=== PATIENT | male | born 2005 | race Two or more races ===

== ENCOUNTER 2025-01-07 09:19 | Emergency (ER) | payer MEDICAID, SELFPAY ==
[2025-01-07 09:33] VITALS: BP 127/79; PULSE 56; RESP 18; TEMP 36.4; O2SAT 99; BMI 21.4
--- NOTE | 2025-01-07 10:00 | EDNOTE_ITS ---
<Statement entered by Mayi Carrillo MD - 01/17/25 19:39> As co-signing physician, I was present and available for consult prn. I concur with the plan and care as documented by the midlevel provider. ED General RME/HPI General Chief complaint: General Adult/Misc Complain Stated complaint: SENT BY [facility] FOR XRAY. PT DOESN'T REMEMBER OF WHAT Time Seen by Provider: 01/07/25 09:38 Source: patient Arrival date/time: 01/07/25 09:19 19-year-old male with no known medical history presents to the emergency room with a chief complaint of needing imaging done. Patient states he was sent over by [facility] for procedure today. Mode of arrival: ambulatory Limitations: no limitations Related Data Home Medications ?Medication ?Instructions ?Recorded ?Confirmed ibuprofen 100 mg/5 mL oral 5 ml PO Q6HR #120 mL suspension (Children's Motrin) Previous Rx's ?Medication ?Instructions ?Recorded Hydrocodone/Acetaminophen (Lortab 0.5 ea PO Q4HR PRN p ain #8 tabs 06/26/15 5-325 mg Tablet) ED Exam General Limitations: Present no limitations Course Quality Measures none Vital Signs Vital signs: Vital Signs Temperature 97.6 F 01/07/25 09:33 Pulse Rate 56 L 01/07/25 09:33 Respiratory Rate 18 01/07/25 09:33 Blood Pressure 127/79 01/07/25 09:33 Pulse Oximetry (%) 99 01/07/25 09:33 Oxygen Delivery Method Room Air 01/07/25 09:33 Discharge Plan Plan Patient Disposition: HOME (Self Care) Discharge Disposition comment: Stable Prescriptions/Referrals Prescriptions/Med Rec: No Action Hydrocodone/Acetaminophen (Lortab 5-325 mg Tablet) 1 EACH tablet 0.5 ea PO Q4HR PRN (Reason: pain) Qty: 8 0RF ibuprofen [Children's Motrin] 100 MG/5 ML suspension 5 ml PO Q6HR Qty: 120 Problem List Clinical Impression: Gastroenteritis Patient/Caregiver Discharge Instructions Education Materials: ED Gastroenteritis, Noninfectious Additional Instructions: Please follow-up with your primary care provider in the next 24 to 48 hours For any evidence of worsening signs or symptoms return to the emergency room immediately Print Language: Turkish Stand Alone Forms: Elsa Award Info., Patient Portal Info Letter PA/HAMLET Supervising Physician PARAM Supervising Physician: Dr. CARRILLO [facility] Narrative [facility] hospital course: 19-year-old male with no known medical history presents to the emergency room with a chief complaint of needing imaging done. Patient states he was sent over by [facility] for procedure today. Patient is complaining of pain to his epigastric area of his abdomen that has been going on for 3 months Patient is hemodynamically stable and in no apparent distress After speaking to the patient the patient is in the wrong area. The patient has an outpatient appointment to have a procedure done by nuclear medicine. The patient accidentally checked in to the emergency room. I called the nuclear medicine and they told me they were still able to do the patient's procedure but he will need to be discharged from the hospital and check into the front of the hospital so they can do this procedure outpatient. Patient was discharged and educated to follow-up with primary care provider in the next 24 to 48 hours and return to the emergency room for any evidence of worsening signs or symptoms Clinical Information Provided by none Medical Records Reviewed None Meds/Rx Considered, not Ordered None Labs/Rad/Tests considered, not Ordered None Chronic Illness/Social Conditions which may negatively complicate care or outcome(s)-explain: None or not applicable EKG EKG not done Lab Interpretation Labs: none Imaging Imaging interpretation: none Medication Administration(s) none Diagnosis Differential diagnosis: Outpatient labs Differential dx and/or dx ruled out: Gastroenteritis Most likely dx, and/or detailed dx discussion: Gastroenteritis Dispositon Disposition: Discharge Home
== END 2025-01-07 10:00 | disposition home or self-care (01) ==
PROVIDERS: Emergency Provider Emergency Medicine
DX: K52.9 Noninfective gastroenteritis and colitis, unspecified (principal)
CPT/HCPCS: 99281

== ENCOUNTER 2025-01-07 09:59 | Outpatient (RCR) | payer MEDICAID, SELFPAY ==
--- NOTE | 2025-01-07 10:00 | XR_ITS ---
Examination: UGOA, hepatobiliary radioisotope scan Gallbladder ejection fraction study. Date and time of exam: January 07, 2025 1011 hours INDICATIONS: Generalized abdominal pain, vitamin D deficiency acid reflux heartburn one year Technique: 5.6 mCi of 99M Hepatolite administered. Serial imaging then obtained from immediate through 60 minutes. 1.2 mcg selective catheter Kinevac administered for gallbladder ejection fraction study. Findings: Radioisotope activity within the liver is reasonably homogenous. Gallbladder, common bile duct small bowel activity noted Impression: Gallbladder activity Abnormal gallbladder ejection fraction, 20%, normal greater than 35%
== END 2025-01-12 23:59 | disposition home or self-care (01) ==
LOC: SNUC 09:59
PROVIDERS: PCP Physician Assistant; Referring Provider Physician Assistant; Visit Provider Physician Assistant
DX: R93.2 Abnormal findings on diagnostic imaging of liver and biliary tract (principal)
CPT/HCPCS: 78227; A9537; J2805

== ENCOUNTER 2025-05-05 08:49 | Emergency (ER) | payer MEDICAID, SELFPAY ==
[2025-05-05 08:50] VITALS: BMI 26.6
--- NOTE | 2025-05-05 09:14 | XR_ITS ---
Examination: Abdomen sonogram, Limited Date and time of exam: May 05, 2025, 1108 hours INDICATIONS: Epigastric pain beginning 1 month ago Technique: Real-time groves scale transabdominal sonographic images of the upper abdomen obtained. Findings: Normal gallbladder. Normal common bile duct 0.3 cm Pancreatic head 2.3 cm Liver 14.7 cm smooth contour no focal liver lesions Normal hepatopetal portal venous flow Patent IVC IMPRESSION: Normal gallbladder Normal common bile duct
[2025-05-05 09:15] VITALS: BP 128/79; PULSE 87; RESP 18; TEMP 36.6; O2SAT 99
--- NOTE | 2025-05-05 09:15 | EDNOTE_ITS ---
ED Abdominal Pain RME/HPI General Chief Complaint: Abdominal Pain Stated complaint: ABD PAIN FOR 2 MONTHS Time seen by provider: 05/05/25 09:07 Arrival date/time: 05/05/25 08:49 19-year-old male with no known medical history presents to the emergency room with a chief complaint of right upper quadrant pain x 2 months Source: patient Mode of arrival: ambulatory Limitations: no limitations Related Data Home Medications ?Medication ?Instructions ?Recorded ?Confirmed ibuprofen 100 mg/5 mL oral 5 ml PO Q6HR #120 mL suspension (Children's Motrin) Previous Rx's ?Medication ?Instructions ?Recorded Hydrocodone/Acetaminophen (Lortab 0.5 ea PO Q4HR PRN p ain #8 tabs 06/26/15 5-325 mg Tablet) ondansetron 4 mg disintegrating 4 mg PO Q8H PRN nausea and 05/05/25 tablet vomiting #14 tabs Allergies Allergy/AdvReac Type Severity Reaction Status Date / Time No Known Allergies Allergy Verified 05/05/25 08:51 Review of Systems Review of Systems Systems Reviewed: All systems reviewed, normal except as documented Constitutional Constitutional: Reports system reviewed and no additional complaints, except as documented, Denies fatigue, Denies fever(s), Denies headache(s) and Denies weakness Eyes Eyes: Reports system reviewed and no additional complaints, except as documented, Denies blurry vision and Denies change in vision ENT Ears, Nose, Mouth, and Throat: Reports system reviewed and no additional complaints, except as documented, Denies otalgia, Denies headache(s), Denies nasal congestion, Denies throat swelling and Denies vertigo Cardiovascular Cardiovascular: Reports system reviewed and no additional complaints, except as documented, Denies chest pain, Denies dyspnea and Denies dyspnea on exertion Respiratory Respiratory: Reports system reviewed and no additional complaints, except as documented, Denies chest congestion, Denies cough, Denies dyspnea, Denies dyspnea on exertion and Denies wheezing Gastrointestinal Gastrointestinal: Reports system reviewed and no additional complaints, except as documented, Reports abdominal pain, Reports cramping, Reports nausea and Denies vomiting Genitourinary Genitourinary: Reports system reviewed and no additional complaints, except as documented, Denies dysuria and Denies hematuria Musculoskeletal Musculoskeletal: Reports system reviewed and no additional complaints, except as documented and Denies back pain Integumentary/Breasts Skin/Breast: Reports system reviewed and no additional complaints, except as documented and Denies wounds Neurologic Neurologic: Reports system reviewed and no additional complaints, except as documented, Denies confusion, Denies headache(s), Denies lack of coordination, Denies vertigo and Denies weakness Psychiatric Psychiatric: Reports system reviewed and no additional complaints, except as documented, Denies anxiety, Denies confusion, Denies depression, Denies paranoia, Denies suicidal ideation and Denies tactile hallucinations Endocrine Endocrine: Reports system reviewed and no additional complaints, except as documented and Denies fatigue Hematologic/Lymphatic Hematologic/Lymphatic: Reports system reviewed and no additional complaints, except as documented and Denies lymphadenopathy Allergic/Immunologic Allergic/Immunologic: Reports system reviewed and no additional complaints, except as documented, Denies throat swelling, Denies urticaria and Denies wheezing Past Medical History Social History SMOKING STATUS: Never smoker ED Exam General Limitations: Present no limitations General appearance: Present alert and in no apparent distress Head Head exam: Present atraumatic Eye Eye exam: Present normal appearance, PERRL and EOMI ENT ENT exam: Present normal exam, normal oropharynx and mucous membranes moist Neck Neck exam: Present normal inspection, full ROM and trachea midline Chest Chest inspection: Present normal inspection and symmetric chest wall rise Respiratory Respiratory exam: Present normal lung sounds bilaterally Cardiovascular Cardiovascular exam: Present regular rate, normal rhythm and normal heart sounds Abdominal Exam Abdominal exam: Present soft, tenderness and normal bowel sounds; Absent distention, guarding, rebound, rigidity, Patel's sign or tenderness at McBurney's Point Abdominal tenderness: Present epigastrium and mild Extremities Exam Extremities exam: Present normal inspection and full ROM Back Exam Back exam: Present normal inspection and full ROM Neurological Exam Neurological exam: Present alert, oriented X3 and CN II-XII intact Psychiatric Psychiatric exam: Present normal affect and normal mood Skin Skin exam: Present warm, dry, intact and normal color Course Quality Measures none Orders Category Date Time Status US gall bladder Stat Exams 05/05/25 09:14 Completed CBC Stat Lab 05/05/25 09:45 Completed CMP [Comprehensive Metabolic Panel] Stat Lab 05/05/25 09:45 Completed Drug Screen,Urine Stat Lab 05/05/25 09:40 Completed Lipase Stat Lab 05/05/25 09:45 Completed UA [Urinalysis] Stat Lab 05/05/25 09:40 Completed Urine Culture Stat Lab 05/05/25 09:40 Received mg Hyd/Al Hyd/Kera Susp [Maalox Susp] Med 05/05/25 09:14 Discontinued 30 ml PO X1 ONE Vital Signs Vital signs: Vital Signs Temperature 98 F 05/05/25 09:15 Pulse Rate 87 05/05/25 09:15 Respiratory Rate 18 05/05/25 09:15 Blood Pressure 128/79 05/05/25 09:15 Pulse Oximetry (%) 99 05/05/25 09:15 Oxygen Delivery Method Room Air 05/05/25 09:15 Abdominal Pain MDM MDM Narrative MDM Narrative:: 19-year-old male with no known medical history presents to the emergency room with a chief complaint of right upper quadrant pain x 2 months Patient is hemodynamically stable and in no apparent distress Physical examination shows tenderness and pain to the patient's right upper quadrant and epigastric area of the patient's abdomen. There is no right lower quadrant abdominal tenderness or left lower quadrant abdominal tenderness. Ultrasound of the gallbladder was completed and was within normal limits. CBC CMP urinalysis were all within normal limits. Patient was discharged and educated to follow-up with primary care provider in the next 24 to 48 hours and return to the emergency room for any evidence of w orsening signs or symptoms Patient data External records reviewed:: [facility] previous records Clinical information provided by:: patient Social determinants that could affect healthcare access:: none Patient has the following chronic illnesses:: No chronic illness How is presenting disease/condition affected by chronic disease/condition?: no chronic disease Evaluation data The following diagnostics were reviewed and interpreted by me:: lab results and radiology exam(s) Lab and/or radiology exams considered but not ordered:: Labs and radiology exams considered and ordered Interpretation Summary: Ultrasound gallbladder-Findings: Normal gallbladder. Normal common bile duct 0.3 cm Pancreatic head 2.3 cm Liver 14.7 cm smooth contour no focal liver lesions Normal hepatopetal portal venous flow Patent IVC IMPRESSION: Normal gallbladder Normal common bile duct Medications / Prescriptions Medications or Prescriptions considered but not ordered:: Medication given Medication administrations:: Medication Administration History Discontinued Medications Al Hydrox/Mg Hydrox/Simethicone (Mg Hyd/Al Hyd/Kera (Maalox Reg) Susp 30 Ml Udc) 30 ml PO X1 ONE Stop: 05/05/25 09:15 Last Admin: 05/05/25 09:51 Dose: 30 ml Documented By: [facility] Medication given Consultations Consultation(s) initiated? (list below): No Diagnosis Differential diagnosis abdominal pain: abdominal pain, constipation, gastroenteritis and other (Cholelithiasis/cholecystitis/cannabinoid hyperemesis) Most likely diagnosis given after review of the tests above:: Cannabinoid hyper syndrome Admission Indicated Admission indicated?: not indicated Admission Request Was there a request for admission?: No Disposition Plan Disposition Plan: Discharge Discharge Attestation Discharge Attestation: The patient and all family members were given an opportunity to ask questions and understood the discharge instructions. Discharge instructions specifically effects, indications for sooner follow up or return to the emergency department, and the expected course of current diagnosis. Patient condition: Stable Discharge Plan Plan Patient Disposition: HOME (Self Care) Discharge Disposition comment: Stable Prescriptions/Referrals Prescriptions/Med Rec: New ondansetron 4 mg tablet,disintegrating 4 mg PO Q8H PRN (Reason: nausea and vomiting) Qty: 14 0RF No Action Hydrocodone/Acetaminophen (Lortab 5-325 mg Tablet) 1 EACH tablet 0.5 ea PO Q4HR PRN (Reason: pain) Qty: 8 0RF ibuprofen [Children's Motrin] 100 MG/5 ML suspension 5 ml PO Q6HR Qty: 120 Referrals: Js Noyola MD [Primary Care Provider, Family Practice] - In 1 week Problem List Clinical Impression: Cannabinoid hyperemesis syndrome Patient/Caregiver Discharge Instructions Education Materials: ED Diet for Vomiting or ... Additional Instructions: Por favor, consulte con fowler m?dico de cabecera en las pr?ximas 24 a 48 horas. Lucy an?lisis de bebe, orina y ecograf?a dieron negativo para cualquier hallazgo cherie. Si hay alguna evidencia de empeoramiento de los signos o s?ntomas, regrese a la michael de emergencias inmediatamente. Print Language: Mohawk Stand Alone Forms: Elsa Award Info., Patient Portal Info Letter PA/GOVERNMENT GUARD Supervising Physician PA/GOVERNMENT GUARD Supervising Physician: Dr. Arellano
[2025-05-05] MEDS: MG HYD/AL HYD/SIME (Maalox Reg) SUSP 30 ML UDC PO (09:51)
[2025-05-05 09:58] LABS: Collection Type, Urine Clean Catch; Squamous Epithelial Cell,Urine 0 /hpf (0-5)
[2025-05-05 09:59] LABS: Basophils # (Auto) 0.1 Thou/mm3 (0.0-0.2); Basophils % (Auto) 1 % (0-2.5); Eosinophils # (Auto) 0.1 Thou/mm3 (0.0-0.5); Eosinophils % (Auto) 1 % (0-10); Hematocrit 49.3 % (41.0-53.0); Hemoglobin 16.1 g/dL (13.5-16.0); Immature Granulocytes Auto 0.01 Thou/mm3 (0.00-0.00); Lymphocytes # (Auto) 1.5 Thou/mm3 (1.0-4.8); Lymphocytes % (Auto) 27 % (10-50); Mean Corpuscular HGB Conc 32.7 g/dl (31.0-37.0); Mean Corpuscular Hemoglobin 31.3 pg (25.0-35.0); Mean Corpuscular Volume 96 fL (80-100); Monocytes # (Auto) 0.4 Thou/mm3 (0.0-0.8); Monocytes % (Auto) 8 % (0-12); Neutrophils # (Auto) 3.4 Thou/mm3 (1.8-7.7); Neutrophils % (Auto) 63 % (37-80); Nucleated Red Blood Cell # 0.00 Thou/mm3 (0.00-0.00); Nucleated Red Blood Cell % 0 /100 WBC (0); Platelet Count 285 Thou/mm3 (140-440); RDW Standard Deviation 46.7 fL (35.1-43.9); Red Blood Count 5.15 Miln/mm3 (4.50-5.90); White Blood Count 5.5 Thou/mm3 (4.5-11.0)
[2025-05-05 10:16] LABS: Alanine Aminotransferase 12 U/L (10-49); Albumin, Serum 5.3 gm/dL (3.5-5.0); Albumin/Globulin Ratio 2.4 (1.2-2.2); Alkaline Phosphatase 52 U/L (46-116); Anion Gap 10 (7-16); Aspartate Amino Transferase 17 U/L (0-34); BUN/Creatinine Ratio 9 Ratio (12-20); Bilirubin,Total 0.8 mg/dL (0.3-1.2); Blood Urea Nitrogen 7 mg/dL (9-23); Calcium 9.5 mg/dL (8.3-10.6); Calcium (Corrected) 9.5 mg/dL (8.5-10.1); Carbon Dioxide 30.2 mMol/L (20.0-31.0); Chloride 104 mMol/L (98-107); Creatinine (Component) 0.8 mg/dL (0.6-1.3); Estimated Creatinine Clearance 123.3 mL/min (>60); Globulin 2.2 gm/dL (2.3-3.5); Glucose 109 mg/dL (74-106); Lipase 31 U/L (12-53); Osmolality,Calculated 285 (275-295); Potassium 4.0 mMol/L (3.4-5.1); Sodium 144 mMol/L (136-145); Total Protein 7.5 gm/dL (5.7-8.2); eGFR > 60 See Note
[2025-05-05 10:40] LABS: Amphetamine/Methamp Scrn,U Negative (Negative); Barbiturate Screen,Urine Negative (Negative); Benzodiazepines Screen,Urine Negative (Negative); Benzoylecgonine Screen, Ur Negative (Negative); Fentanyl Screen,Urine Negative (Negative); Opiate Screen,Urine Negative (Negative); THC Screen,Urine Positive (Negative)
[2025-05-05 10:57] LABS: Bacteria,Urine Rare; Bilirubin,Urine Negative (Negative); Blood,Urine Negative (Negative); Clarity,Urine Clear (Clear/Hazy); Color,Urine Lt-Yellow (Lt Yel-Yel); Glucose, Urine Negative (Negative); Ketones,Urine Negative (Negative); Leukocyte Esterase,Urine Negative (Negative); Nitrite,Urine Negative (Negative); PH,Urine 6.5 (5.0-7.0); Protein,Urine Negative (Neg - Trace); RBC,Urine 2 /hpf (0-3); Specific Gravity,Urine 1.019 (1.001-1.035); Urobilinogen,Urine Negative mg/dL (0.0-1.0); WBC,Urine < 1 /hpf (0-5)
== END 2025-05-05 12:18 | disposition home or self-care (01) ==
PROVIDERS: Emergency Provider Nurse Practitioner Family; PCP Family Medicine
DX: R11.16 Cannabis hyperemesis syndrome (principal); F12.90 Cannabis use, unspecified, uncomplicated
CPT/HCPCS: 36415; 76705; 80053; 80307; 81001; 83690; 85025; 87086; 99283; A9270